=== PATIENT | male | born 1960 | race Caucasian/White ===

== ENCOUNTER 2024-02-11 19:32 | Inpatient (IN) | payer MEDICARE ==
[~2024-02-11 19:32] MED LIST: Iopamidol-370 76% 500 ML MDV (1 ML CHARGE) ONE
[2024-02-11 20:17] LABS: #Basophils Less than 0.03 10x3/uL (0.0-0.2); %Basophils 0.4 % (0.0-1.0); %Eosinophils 1.8 % (0.0-10.0); %Lymphocytes 12.9 % (21.0-51.0); %Monocytes 6.5 % (0.0-10.0); %Neutrophils 78.2 % (42.0-75.0); Hematocrit 43.5 % (42.0-52.0); Hemoglobin 15.1 g/dL (14.0-18.0); Mean Corpuscular HGB CONC 34.7 g/dL (32.0-36.0); Mean Corpuscular Hemoglobin 31.3 pg (27.0-31.0); Mean Corpuscular Volume 90.2 fL (78.0-98.0); Mean Platelet Volume 9.8 fL (7.4-10.4); Platelet Count 159 10x3/uL (130-400); RBC Distribution Width 13.2 % (11.5-14.5); Red Blood Cell (RBC) Count 4.82 mill/uL (4.70-6.10)
[2024-02-11 20:33] LABS: Anion Gap 15 mmol/L (10-20); BUN (Urea Nitrogen) 11 mg/dL (8.4-25.7); Calc. Creatinine Clearance 0 mL/min (70-130); Calcium 8.9 mg/dL (7.8-10.44); Carbon Dioxide 20 mmol/L (23-31); Chloride 112 mmol/L (98-107); Estimated GFR 60; Glucose 121 mg/dL (80-115); Lipase 13 U/L (8-78); Potassium 3.7 mmol/L (3.5-5.1); Sodium 143 mmol/L (136-145)
[2024-02-11 20:39] LABS: Troponin I Less than 0.010 ng/mL (< 0.028)
[2024-02-11] MEDS ORDERED: Famotidine/PF 20 mg/2ml Vial ONE (20:41)
[2024-02-11] MEDS ORDERED: Prochlorperazine 10 MG/2 ML VIAL ONE (20:41)
[2024-02-11 22:08] LABS: ALT (SGPT) 36 U/L (8-55); AST (SGOT) 24 U/L (5-34); Alkaline Phosphatase 66 U/L (40-110); Bilirubin, Direct 0.5 mg/dL (0.1-0.3); Protein, Total 6.4 g/dL (5.8-8.1)
[2024-02-12] MEDS ORDERED: Digoxin 0.5 MG/2 ML AMP ONE (01:02)
[2024-02-12 02:48] LABS: Magnesium 1.9 mg/dL (1.6-2.6)
[2024-02-12] MEDS ORDERED: Acetaminophen 325 MG TAB PO PRN (03:03)
[2024-02-12] MEDS ORDERED: Ondansetron PF 4 MG/2 ML Vial IVP PRN (03:03)
[2024-02-12] MEDS ORDERED: Polyethylene Glycol 3350 17 GM Packet PO PRN (03:13)
[2024-02-12] MEDS: Lactated Ringer's 1,000 ML IV SCH (03:41)
[2024-02-12] MEDS: Amiodarone 450 MG in Dextrose 5% in Water 250 ML IVPB SCH (03:44)
[2024-02-12] MEDS: Amiodarone 200 MG TAB PO SCH ×2 (04:15→20:45)
[2024-02-12 04:17] VITALS: BMI 39.9
[2024-02-12 05:55] LABS: #Basophils 0.03 10x3/uL (0.0-0.2); %Basophils 0.6 % (0.0-1.0); %Eosinophils 4.5 % (0.0-10.0); %Monocytes 10.4 % (0.0-10.0); %Neutrophils 74.1 % (42.0-75.0); Hemoglobin 14.4 g/dL (14.0-18.0); Mean Corpuscular HGB CONC 35.1 g/dL (32.0-36.0); Mean Corpuscular Hemoglobin 32.1 pg (27.0-31.0); Mean Corpuscular Volume 91.3 fL (78.0-98.0); Mean Platelet Volume 10.2 fL (7.4-10.4); Platelet Count 147 10x3/uL (130-400); RBC Distribution Width 13.5 % (11.5-14.5); Red Blood Cell (RBC) Count 4.49 mill/uL (4.70-6.10)
[2024-02-12 06:03] LABS: Anion Gap 12 mmol/L (10-20); BUN (Urea Nitrogen) 13 mg/dL (8.4-25.7); Calc. Creatinine Clearance 154 mL/min (70-130); Carbon Dioxide 19 mmol/L (23-31); Chloride 115 mmol/L (98-107); Estimated GFR 86; Glucose 99 mg/dL (80-115); Magnesium 1.7 mg/dL (1.6-2.6); Potassium 4.1 mmol/L (3.5-5.1); Sodium 142 mmol/L (136-145)
[2024-02-12] MEDS: Verapamil 180 MG ER.TAB PO SCH (08:31)
[2024-02-12] MEDS: Dabigatran 150 mg Capsule PO SCH (08:31)
[2024-02-12] MEDS: Fenofibrate Nanocrystallized 145 MG TAB PO SCH (08:31)
[2024-02-12] MEDS: Senokot S 8.6-50 MG TAB PO SCH (08:32)
[2024-02-12] MEDS ORDERED: Glycerin Adult Supp. (12 ct jar) PR PRN (10:25)
[2024-02-12] MEDS: Pantoprazole DR 40 MG TAB PO SCH (11:02)
[2024-02-12] MEDS: Polyethylene Glycol 3350 17 GM Packet PO SCH (11:03)
[2024-02-12] MEDS: Rosuvastatin 10 MG TAB PO SCH (20:45)
[2024-02-13 04:21] LABS: #Basophils Less than 0.03 10x3/uL (0.0-0.2); %Basophils 0.7 % (0.0-1.0); %Eosinophils 6.5 % (0.0-10.0); %Lymphocytes 31.9 % (21.0-51.0); %Neutrophils 52.5 % (42.0-75.0); Hematocrit 40.5 % (42.0-52.0); Hemoglobin 13.8 g/dL (14.0-18.0); Mean Corpuscular HGB CONC 34.1 g/dL (32.0-36.0); Mean Corpuscular Hemoglobin 30.9 pg (27.0-31.0); Mean Corpuscular Volume 90.6 fL (78.0-98.0); Mean Platelet Volume 10.4 fL (7.4-10.4); Platelet Count 126 10x3/uL (130-400); RBC Distribution Width 13.3 % (11.5-14.5); Red Blood Cell (RBC) Count 4.47 mill/uL (4.70-6.10)
[2024-02-13 04:32] LABS: Anion Gap 9 mmol/L (10-20); BUN (Urea Nitrogen) 11 mg/dL (8.4-25.7); Calc. Creatinine Clearance 160 mL/min (70-130); Calcium 8.6 mg/dL (7.8-10.44); Carbon Dioxide 23 mmol/L (23-31); Chloride 111 mmol/L (98-107); Estimated GFR 91; Glucose 104 mg/dL (80-115); Magnesium 1.8 mg/dL (1.6-2.6); Potassium 3.9 mmol/L (3.5-5.1); Sodium 139 mmol/L (136-145)
[2024-02-13] MEDS: Polyethylene Glycol 3350 17 GM Packet PO SCH (09:21)
[2024-02-13] MEDS: Pantoprazole DR 40 MG TAB PO SCH (09:21)
[2024-02-13 12:19] VITALS: BP 138/86; TEMP 98
== END 2024-02-13 14:57 | disposition home or self-care (01) | DRG 392 ==
LOC: ERS 19:32 → IMCU/EMU 02-12 02:17 → 2NO 02-12 11:27
PROVIDERS: ADMIT Internal Medicine; ATTEND Hospitalist
DX: K21.9 Gastro-esophageal reflux disease without esophagitis (principal); I48.20 Chronic atrial fibrillation, unspecified; K59.00 Constipation, unspecified; G47.33 Obstructive sleep apnea (adult) (pediatric); I10 Essential (primary) hypertension; E78.5 Hyperlipidemia, unspecified; Z99.89 Dependence on other enabling machines and devices
CPT/HCPCS: 36415; 74174; 80048; 80076; 83605; 83690; 83735; 84443; 84484; 85025; 93005; 96374; 96375; J0282; J0780; J1160; J3490; J7070; J7120; Q9967